=== PATIENT | male | born 1975 | race American Indian/Alaskan Native ===

== ENCOUNTER 2021-01-10 15:26 | Emergency (ER) | payer MEDICAID, OTHER ==
[~2021-01-10 15:26] MED LIST: Sodium Chloride 0.9% 10 ML Syringe FLUSH PRN; levETIRAcetam in NaCl (iso-os) 1,500 MG in Premix Bag 1 BAG IV ONE
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
[2021-01-10 15:44] VITALS: BP 123/55; PULSE 85
[2021-01-10 16:37] LABS: ANION GAP 17.5 mEq/L (7-13); CHLORIDE,CL 99 mmol/L (98-107); SODIUM,NA 139 mmol/L (136-145)
== END 2021-01-10 16:50 | disposition left against medical advice (07) ==
LOC: DL.ED 15:26
DX: R56.9 Unspecified convulsions (principal); Z88.8 Allergy status to other drugs, medicaments and biological substances; Z79.899 Other long term (current) drug therapy
CPT/HCPCS: 36415; 80053; 80307; 82550; 85025; 86140; 96365; 99284; J1953

== ENCOUNTER 2021-04-25 20:41 | Emergency (ER) | payer MEDICAID ==
[2021-04-25 21:00] VITALS: PULSE 102
[2021-04-25] MEDS ORDERED: levETIRAcetam 500 MG Tab PO SCH (21:00)
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
[2021-04-25 22:44] VITALS: BP 140/91
== END 2021-04-25 22:46 ==
LOC: DL.ED 20:41
DX: S06.0X1A Concussion with loss of consciousness of 30 minutes or less, initial encounter (principal); S00.03XA Contusion of scalp, initial encounter; R56.9 Unspecified convulsions; Z88.8 Allergy status to other drugs, medicaments and biological substances; Z72.0 Tobacco use; Z79.899 Other long term (current) drug therapy; W50.1XXA Accidental kick by another person, initial encounter
CPT/HCPCS: 70450; 72125; 99284-25; A9270-GY

== ENCOUNTER 2021-05-10 06:35 | Emergency (ER) | payer SELFPAY | END 2021-05-10 07:20 | disposition left against medical advice (07) | LOC: DL.ED 06:35 | DX: Z53.21 Procedure and treatment not carried out due to patient leaving prior to being seen by health care provider (principal) ==

== ENCOUNTER 2021-05-10 12:42 | Emergency (ER) | payer SELFPAY ==
[2021-05-10] MEDS ORDERED: levETIRAcetam 500 MG Tab PO ONE (12:58)
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
[2021-05-10 13:30] VITALS: BP 112/70; PULSE 111
== END 2021-05-10 13:22 | disposition home or self-care (01) ==
LOC: DL.ED 12:42
DX: G40.909 Epilepsy, unspecified, not intractable, without status epilepticus (principal); Z76.0 Encounter for issue of repeat prescription; Z88.8 Allergy status to other drugs, medicaments and biological substances; Z79.899 Other long term (current) drug therapy; Z72.0 Tobacco use
CPT/HCPCS: 99284; A9270

== ENCOUNTER 2021-08-05 11:30 | Emergency (ER) | payer SELFPAY ==
[2021-08-05] MEDS ORDERED: levETIRAcetam 500 MG Tab PO ONE ×2 (11:31→11:37)
[2021-08-05 11:42] VITALS: BP 143/62; PULSE 101
[2021-08-05] MEDS ORDERED: levETIRAcetam 500 MG Tab ONE (11:43)
== END 2021-08-05 11:50 | disposition home or self-care (01) ==
LOC: DL.ED 11:30
DX: R56.9 Unspecified convulsions (principal); Z88.8 Allergy status to other drugs, medicaments and biological substances; Z79.899 Other long term (current) drug therapy
CPT/HCPCS: 99283; A9270-GY

== ENCOUNTER 2022-07-05 04:02 | Emergency (ER) | payer SELFPAY ==
[2022-07-05] MEDS ORDERED: Ketorolac 30 MG/ML SDV IVPUSH ONE (04:09)
[2022-07-05] MEDS ORDERED: Metoclopramide 10 MG/2 ML SDV IVPUSH ONE (04:09)
[2022-07-05] MEDS ORDERED: Sodium Chloride 0.9% 1,000 ML IV ONE (04:09)
[2022-07-05 04:29] VITALS: BP 148/84; PULSE 102
[2022-07-05] MEDS: Sodium Chloride 0.9% 10 ML Syringe FLUSH PRN ×3 (04:29→08:07)
[2022-07-05] MEDS ORDERED: Pantoprazole 40 MG in Sodium Chloride 0.9% 100 ML IV SCH (04:48)
[2022-07-05] MEDS ORDERED: Pantoprazole 40 MG Vial IVPUSH ONE (04:50)
[2022-07-05 04:57] LABS: ANION GAP 11.6 mEq/L (7-13)
[2022-07-05] MEDS ORDERED: Iopamidol 612 MG/ML 100 ML Bottle IVPUSH ONE (05:00)
[2022-07-05] MEDS ORDERED: Potassium Chloride 10 MEQ Tab.ER PO ONE (05:29)
[2022-07-05] MEDS ORDERED: levETIRAcetam in NaCl (iso-os) 1,000 MG in Premix Bag 1 BAG IV ONE ×2 (07:41)
[2022-07-05] MEDS ORDERED: Piperacillin/Tazobactam 3.375 GM in Sodium Chloride 0.9% 100 ML IV ONE (07:43)
== END 2022-07-05 08:52 ==
LOC: DL.ED 04:02
DX: G40.909 Epilepsy, unspecified, not intractable, without status epilepticus (principal); K81.0 Acute cholecystitis; F10.10 Alcohol abuse, uncomplicated; F19.10 Other psychoactive substance abuse, uncomplicated; D64.9 Anemia, unspecified; E87.6 Hypokalemia; R21 Rash and other nonspecific skin eruption; Z88.8 Allergy status to other drugs, medicaments and biological substances; Y90.6 Blood alcohol level of 120-199 mg/100 ml
CPT/HCPCS: 36415; 74177; 76705; 80053; 80307; 83690; 84484; 85025; 85610; 93005; 93010; 96361; 96365; 96375; 99284; 99285-25; A9270-GY; C9113; J1885; J1953; J2543; J2765; J3490; J7030; J7050; Q9967

== ENCOUNTER 2022-10-08 16:11 | Emergency (ER) | payer BC, MEDICAID ==
[2022-10-08 16:28] VITALS: BP 145/82; PULSE 99
[2022-10-08] MEDS ORDERED: Sodium Chloride 0.9% 10 ML Syringe FLUSH PRN (16:51)
[2022-10-08] MEDS ORDERED: Ondansetron 4 MG/2 ML SDV IV ONE (16:53)
[2022-10-08] MEDS ORDERED: Sodium Chloride 0.9% 1,000 ML IV ONE (16:53)
[2022-10-08] MEDS ORDERED: levETIRAcetam in NaCl (iso-os) 3,000 MG in Premix Bag 1 BAG IV ONE ×2 (16:54)
[2022-10-08] MEDS ORDERED: Famotidine 20 MG/2 ML SDV IVPUSH ONE (16:54)
[2022-10-08 17:10] LABS: BASOPHILS PERCENT AUTO 1.1 % (0.0-1.0); EOSINOPHILS PERCENT AUTO 0.4 % (1.0-3.0); HEMATOCRIT 29.7 % (40.0-54.0); HEMOGLOBIN 9.6 g/dL (14.0-18.0); LYMPHOCYTES PERCENT AUTO 15.2 % (20.5-50.1); MEAN CORPUSCULAR HEMOGLOBIN 27.6 pg (27.0-34.0); MEAN CORPUSCULAR HGB CONC 32.3 g/dL (33.0-35.0); MEAN CORPUSCULAR VOLUME 85.3 fL (80-100); MONOCYTES PERCENT AUTO 8.8 % (2-8); NEUTROPHILS PERCENT AUTO 74.5 % (42.2-75.2); PLATELET COUNT,PLT 103 10^3/uL (150-450); RED BLOOD CELL COUNT 3.48 10^6/uL (4.6-6.2); WHITE BLOOD CELL COUNT,WBC 4.7 10^3/uL (5.0-10.0)
[2022-10-08 17:30] LABS: A/G RATIO 0.56; ALANINE AMINOTRANSFERASE,ALT 51 U/L (16-63); ALBUMIN 2.7 g/dL (3.4-5.0); ALKALINE PHOSPHATASE 184 U/L (46-116); AMYLASE 45 U/L (25-115); ANION GAP 12.2 mEq/L (7-13); ASPARTATE AMNIOTRANSFERASE,AST 115 U/L (15-37); BILIRUBIN TOTAL 3.4 mg/dL (0.2-1.0); BLOOD UREA NITROGEN,BUN 4 mg/dL (7-18); BUN/CREATININE RATIO 4.3 (No establ ref range); CALCIUM 8.3 mg/dL (8.5-10.1); CARBON DIOXIDE,CO2 27 mmol/L (21-32); CHLORIDE,CL 104 mmol/L (98-107); CREATININE 0.92 mg/dL (0.70-1.30); EST CRCL DRUG DOSING (CG) 107.78 mL/min; ESTIMATED GFR 103 mL/min (>=60); ETHANOL BLOOD MEDICAL < 3 mg/dL (0); GLUCOSE RANDOM 131 mg/dL (70-99); LIPASE 92 U/L (73-393); POTASSIUM,K 3.2 mmol/L (3.5-5.1); PROTEIN TOTAL,TP 7.5 g/dL (6.4-8.2); SODIUM,NA 140 mmol/L (136-145)
[2022-10-08 17:37] LABS: LACTIC ACID 2.3 mmol/L (0.4-2.0)
[2022-10-08 17:56] LABS: APPEARANCE,URINE CLEAR (CLEAR); BILIRUBIN,URINE NEGATIVE (NEGATIVE); COLOR,URINE YELLOW (YELLOW); GLUCOSE,URINE NEGATIVE (NEGATIVE); KETONES,URINE NEGATIVE (NEGATIVE); LEUKOCYTE ESTERASE,URINE NEGATIVE (NEGATIVE); NITRITE,URINE NEGATIVE (NEGATIVE); OCCULT BLOOD,URINE NEGATIVE (NEGATIVE); PH,URINE 8.5 (5.0-9.0); PROTEIN,URINE NEGATIVE (NEGATIVE); UROBILINOGEN,URINE 0.2 mg/dL (0.2-1.0)
[2022-10-08 17:58] LABS: AMPHETAMINES,URINE NEGATIVE (NEGATIVE); BARBITURATES,URINE NEGATIVE (NEGATIVE); BENZODIAZEPINE,URINE NEGATIVE (NEGATIVE); MDMA (ECSTASY), URINE NEGATIVE (NEGATIVE); METHADONE,URINE NEGATIVE (NEGATIVE); METHAMPHETAMINES,URINE NEGATIVE (NEGATIVE); OPIATES,URINE NEGATIVE (NEGATIVE); OXYCODONE,URINE NEGATIVE (NEGATIVE); PHENCYCLIDINE,URINE NEGATIVE (NEGATIVE); TCA,URINE NEGATIVE (NEGATIVE)
== END 2022-10-08 18:40 | disposition home or self-care (01) ==
LOC: DL.ED 16:11
DX: K29.20 Alcoholic gastritis without bleeding (principal); R11.2 Nausea with vomiting, unspecified; Z88.8 Allergy status to other drugs, medicaments and biological substances; Z76.0 Encounter for issue of repeat prescription
CPT/HCPCS: 36415; 80053; 80305; 80307; 81003; 82150; 83605; 83690; 84145; 85025; 96361; 96365; 96375; 99284; J1953; J2405; J3490; J7030